=== PATIENT | male | born 1985 | race Two or more races ===

== ENCOUNTER 2017-08-14 13:23 | Emergency (ER) | payer MEDICAID ==
[~2017-08-14] VITALS: Ht 172.7 cm; Wt 73.9 kg
[2017-08-14 13:44] VITALS: BP 127/74; Ht 172.7 cm; Wt 73.9 kg
[2017-08-14 14:12] LABS: microscopic required? NO
[2017-08-14 14:22] LABS: urine erythrocyte NEGATIVE (NEGATIVE)
== END 2017-08-14 17:13 | disposition home or self-care (01) ==
LOC: ED 13:23
PROVIDERS: Emergency Medicine
DX: B34.9 Viral infection, unspecified (principal)
CPT/HCPCS: 85378; J1885; Q0162

== ENCOUNTER 2017-11-02 10:33 | Emergency (ER) | payer MEDICAID ==
[~2017-11-02] VITALS: Ht 172.7 cm; Wt 76.7 kg
[2017-11-02 10:41] VITALS: Ht 172.7 cm; Wt 76.7 kg
[2017-11-02 11:28] LABS: RED CELL DISTRIBUTION WIDTH 12.9 % (11.5-14.5)
[2017-11-02 11:30] LABS: CALCIUM 9.1 mg/dL (8.5-10.1); CHLORIDE SERUM 105 mmol/L (98-107); CREATININE SERUM 0.9 mg/dL (0.7-1.3); GFR1 > 60 mL/min; GLUCOSE SERUM 115 mg/dL (74-106); POTASSIUM SERUM 3.6 mmol/L (3.5-5.1); SODIUM SERUM 142 mmol/L (136-145)
[2017-11-02 11:34] LABS: ALKALINE PHOSPHATASE 85 U/L (46-116); ALT/SGPT 37 U/L (16-63); AST/SGOT 21 U/L (15-37); BILIRUBIN TOTAL 0.84 mg/dL (0.20-1.00); CHOLESTEROL 141 mg/dL (<200); HDL CHOLESTEROL 47 mg/dL (40-60); LIPASE 91 IU/L (73-393); PHOSPHOROUS 1.5 mg/dL (2.5-4.9); TOTAL PROTEIN, SERUM 8.1 g/dL (6.4-8.2); URIC ACID 5.4 mg/dL (3.5-7.2)
[2017-11-02 11:42] LABS: PLATELET COUNT 208 x10^3mcL (130-400)
[2017-11-02 11:44] LABS: BASOPHIL % 0 % (0-2)
[2017-11-02 13:56] VITALS: BP 134/98
== END 2017-11-02 13:56 | disposition home or self-care (01) ==
LOC: ED 10:33
PROVIDERS: Emergency Medicine
DX: R07.89 Other chest pain (principal); R11.10 Vomiting, unspecified; R10.13 Epigastric pain
CPT/HCPCS: 36415; 83880; J1885; Q0092; Q9967

== ENCOUNTER 2018-07-01 12:59 | Emergency (ER) | payer MEDICAID ==
[~2018-07-01] VITALS: Ht 172.7 cm; Wt 81.8 kg
[2018-07-01 13:21] VITALS: Ht 172.7 cm; Wt 81.8 kg
[2018-07-01 15:14] LABS: RED CELL DISTRIBUTION WIDTH 12.9 % (11.5-14.5)
[2018-07-01 15:16] LABS: PLATELET COUNT 245 x10^3mcL (130-400)
[2018-07-01 15:23] LABS: microscopic required? NO
[2018-07-01 15:29] LABS: CALCIUM 8.9 mg/dL (8.5-10.1); CARBON DIOXIDE 28.3 mmol/L (21-32); CHLORIDE SERUM 103 mmol/L (98-107); GFR1 > 60 mL/min; GLUCOSE SERUM 107 mg/dL (74-106); POTASSIUM SERUM 3.4 mmol/L (3.5-5.1); SODIUM SERUM 139 mmol/L (136-145)
[2018-07-01 15:31] LABS: UA SPECIFIC GRAVITY <=1.005 (1.005-1.035); urine erythrocyte NEGATIVE (NEGATIVE)
[2018-07-01 16:11] LABS: BAND NEUTROPHIL 17 % (0-10); BASOPHIL 0 % (0-2); METAMYELOCTE 1 % (0-2); MONOCYTE 4 % (0-7); SEGMENTED NEUTROPHILS 74 % (37-75)
[2018-07-01 16:13] LABS: rbc morphology (normal/abnorm) NORMAL (NORMAL)
[2018-07-01 16:14] LABS: PLATELET MORPHOLOGY PLATELETS NORMAL
[2018-07-01 16:40] VITALS: BP 130/85
== END 2018-07-01 16:40 | disposition home or self-care (01) ==
LOC: ED 12:59
PROVIDERS: Emergency Medicine
DX: J98.01 Acute bronchospasm (principal); R05 Cough; R50.9 Fever, unspecified
CPT/HCPCS: 87804; J1885; J2930; J7030; J7613; J7644

== ENCOUNTER 2019-12-03 15:21 | Emergency (ER) | payer OTHER, MEDICAID, SELFPAY ==
[~2019-12-03] VITALS: Ht 172.7 cm; Wt 77.1 kg
[2019-12-03 15:22] VITALS: BP 134/91; Ht 172.7 cm; Wt 77.1 kg
== END 2019-12-03 17:20 | disposition home or self-care (01) ==
LOC: ED 15:21
DX: U07.1 COVID-19 (principal)
CPT/HCPCS: U0003-CS